=== PATIENT | male | born 1950 | race Caucasian/White ===

== ENCOUNTER → 2019-11-23 | Outpatient (CLI) | payer OTHER | LOC: M.RAD 15:13 | DX: J43.8 Other emphysema (principal); G63 Polyneuropathy in diseases classified elsewhere; E55.9 Vitamin D deficiency, unspecified; F41.1 Generalized anxiety disorder; R82.90 Unspecified abnormal findings in urine; J98.4 Other disorders of lung ==

== ENCOUNTER → 2020-04-07 | Outpatient (CLI) | payer OTHER | LOC: M.ULTRA 07:35 | PROVIDERS: ATTEND Internal Medicine | DX: N13.2 Hydronephrosis with renal and ureteral calculous obstruction (principal); R19.09 Other intra-abdominal and pelvic swelling, mass and lump ==

== ENCOUNTER 2020-06-09 20:47 | Inpatient (IN) | payer OTHER ==
[~2020-06-09] VITALS: Ht 193 cm; Wt 57.3 kg
[2020-06-09 20:50] VITALS: BP 120/66
--- NOTE | 2020-06-09 21:03 | NUR ---
DR SELLERS NOTIFIED RE: STEMI ACTIVATION
--- NOTE | 2020-06-09 21:08 | NUR ---
STEMI ACTIVATION CANCELLED PER DR SELLERS
[2020-06-09] MEDS ORDERED: NAPROXEN (21:21)
[2020-06-09] MEDS ORDERED: ADVAIR (21:21)
[2020-06-09 21:23] LABS: ABSOLUTE LYMPHOCYTES 0.7 thou/uL (0.8-5.3); ABSOLUTE MONOCYTES 0.6 thou/uL (0.0-1.2); ABSOLUTE NEUTROPHILS 16.8 thou/uL (1.6-8.1); BASOPHILS 0.1 %; EOSINOPHILS 0.1 %; HEMATOCRIT 40.9 % (42.0-52.0); HEMOGLOBIN 13.2 gm/dL (14.0-18.0); LYMPHOCYTES 3.6 %; MCH 28.9 pg (26.0-34.0); MCHC 32.2 g/dL (28.0-37.0); MCV 89.8 fL (80.0-100.0); MONOCYTES 3.4 %; MPV 7.4 fl. (7.2-11.1); NUCLEATED RBCS 0 /100WBC; PLATELET COUNT* 416 thou/uL (150-400); POLYS 92.8 %; RBC 4.56 mil/uL (4.50-6.00); RDW-CV 15.7 % (10.5-14.5)
[2020-06-09 21:53] LABS: BE -2.2 mmol/L (-2 to +3); PO2 87.1 mmHg (75.0-100.0)
[2020-06-09 21:57] LABS: PCO2 78.4 mmHg (35.0-45.0); pH 7.173 (7.340-7.450)
[2020-06-09 23:10] LABS: HEMATOCRIT 40.8 % (42.0-52.0); HEMOGLOBIN 13.1 gm/dL (14.0-18.0); MCH 28.8 pg (26.0-34.0); MCV 89.9 fL (80.0-100.0); NUCLEATED RBCS 0 /100WBC; PLATELET COUNT* 449 thou/uL (150-400); RBC 4.54 mil/uL (4.50-6.00); RDW-CV 15.7 % (10.5-14.5); WBC 20.7 thou/uL (4.0-11.0)
[2020-06-09 23:33] LABS: CALCIUM 9.6 mg/dL (8.5-10.1); CREATININE 2.1 mg/dL (0.6-1.3)
[2020-06-09 23:34] LABS: INR 1.1; PROTIME 11.4 Seconds (9.20-11.50)
[2020-06-09 23:37] LABS: ALBUMIN 2.9 g/dL (3.4-5.0); MAGNESIUM 2.7 mg/dL (1.8-2.4); TOTAL BILIRUBIN 0.4 mg/dL (<0.1-1.0); TOTAL PROTEIN 8.8 g/dL (6.4-8.2)
[2020-06-10] VITALS (7 sets, daily range): BP systolic 110–125; BP diastolic 66–75
[2020-06-10 00:56] LABS: BE -2.7 mmol/L (-2 to +3); PO2 112.9 mmHg (75.0-100.0)
[2020-06-10 01:01] LABS: PCO2 66.4 mmHg (35.0-45.0); pH 7.219 (7.340-7.450)
[2020-06-10 01:06] LABS: ABSOLUTE BASOPHILS 0.4 thou/uL (0.0-0.2); ABSOLUTE LYMPHOCYTES 1.4 thou/uL (0.8-5.3); ABSOLUTE MONOCYTES 0.2 thou/uL (0.0-1.2); ABSOLUTE NEUTROPHILS 18.6 thou/uL (1.6-8.1); PLATELET ESTIMATE INCREASED
[2020-06-10 06:18] LABS: BE -4.3 mmol/L (-2 to +3); PO2 123.3 mmHg (75.0-100.0)
[2020-06-10 06:24] LABS: PCO2 61.8 mmHg (35.0-45.0); pH 7.215 (7.340-7.450)
--- NOTE | 2020-06-10 09:00 | NUR ---
PT ADMITTED TO ROOM 213 FROM ED WITH RF,AMS AND COPD EXAC.PT IS AOX2.VSS ON BIPAP. POSITIVE ON SEPSIS SCREEN. ASSESSMENT CHARTED. EDUCATED TO ROOM,PLAN OF CARE AND TREATMENTS. NOTHING FURTHER AT THIS TIME.CLWR.WCTM
[2020-06-10 13:44] LABS: BE -4.2 mmol/L (-2 to +3); PCO2 39.2 mmHg (35.0-45.0); pH 7.348 (7.340-7.450)
[2020-06-10 19:11] LABS: ABSOLUTE LYMPHOCYTES 0.2 thou/uL (0.8-5.3); ABSOLUTE MONOCYTES 0.3 thou/uL (0.0-1.2); ABSOLUTE NEUTROPHILS 24.6 thou/uL (1.6-8.1); BASOPHILS 0.1 %; HEMATOCRIT 37.7 % (42.0-52.0); HEMOGLOBIN 11.9 gm/dL (14.0-18.0); LYMPHOCYTES 0.7 %; MCH 28.7 pg (26.0-34.0); MCHC 31.7 g/dL (28.0-37.0); MCV 90.5 fL (80.0-100.0); MONOCYTES 1.1 %; NUCLEATED RBCS 0 /100WBC; POLYS 98.1 %; RBC 4.16 mil/uL (4.50-6.00); RDW-CV 15.6 % (10.5-14.5); WBC 25.1 thou/uL (4.0-11.0)
[2020-06-10 19:12] LABS: PLATELET COUNT* 353 thou/uL (150-400)
[2020-06-10 19:31] LABS: ALBUMIN 2.5 g/dL (3.4-5.0); CALCIUM 8.4 mg/dL (8.5-10.1); CREATININE 1.8 mg/dL (0.6-1.3); MAGNESIUM 2.3 mg/dL (1.8-2.4); PHOSPHORUS* 4.1 mg/dL (2.5-4.9); TOTAL BILIRUBIN 0.4 mg/dL (<0.1-1.0); TOTAL PROTEIN 7.6 g/dL (6.4-8.2)
[2020-06-11] VITALS (7 sets, daily range): BP systolic 100–122; BP diastolic 53–80
[2020-06-11 03:56] LABS: ABSOLUTE BASOPHILS 0.1 thou/uL (0.0-0.2); ABSOLUTE LYMPHOCYTES 0.3 thou/uL (0.8-5.3); ABSOLUTE MONOCYTES 0.2 thou/uL (0.0-1.2); ABSOLUTE NEUTROPHILS 21.2 thou/uL (1.6-8.1); BASOPHILS 0.4 %; LYMPHOCYTES 1.2 %; MCH 28.8 pg (26.0-34.0); MCHC 32.2 g/dL (28.0-37.0); MCV 89.6 fL (80.0-100.0); MONOCYTES 0.9 %; MPV 6.8 fl. (7.2-11.1); NUCLEATED RBCS 0 /100WBC; PLATELET COUNT* 332 thou/uL (150-400); POLYS 97.5 %; RDW-CV 15.4 % (10.5-14.5); WBC 21.7 thou/uL (4.0-11.0)
[2020-06-11 04:28] LABS: ALBUMIN 2.4 g/dL (3.4-5.0); CALCIUM 8.3 mg/dL (8.5-10.1); MAGNESIUM 2.3 mg/dL (1.8-2.4); POTASSIUM 4.7 mmol/L (3.5-5.1); TOTAL BILIRUBIN 0.4 mg/dL (<0.1-1.0); TOTAL PROTEIN 7.4 g/dL (6.4-8.2)
[2020-06-11 07:45] LABS: BE 0.4 mmol/L (-2 to +3); PCO2 45.7 mmHg (35.0-45.0); PO2 83.5 mmHg (75.0-100.0); pH 7.372 (7.340-7.450)
--- NOTE | 2020-06-11 10:33 | NUR ---
PT IS ABLE TO COMMUNICATE HIS NEEDS TO STAFF EFFECTIVELY. HE HAS DENIED THE NEED FOR PAIN MEDICATION UP TO 0700 THIS MORNING. DIAZ PLACED ON PYROTECHNIST; TOLERATED WELL BY PT BUT INSERTION WAS PROBLEMATIC; URETHRAL OPENING TOO NARROW FOR ANY BT A STRAIGHT 12F CATHETER. INSERTION NON-TRAUMATIC, BUT BLOOD SEEN IN TUBE ABOUT 3HRS POST PLACEMENT; PT HAS HX OF PULLING AT [employer] AND MAY HAVE DONE SO WITH HIS CATHETER WELL. ENHANCED ISOLATION MAINTAINED FOR PENDING COVID-19 PCR TEST.
[2020-06-11 10:43] LABS: CALCIUM 8.3 mg/dL (8.5-10.1); CREATININE 1.9 mg/dL (0.6-1.3); POTASSIUM 4.9 mmol/L (3.5-5.1)
[2020-06-11 10:46] LABS: MAGNESIUM 2.4 mg/dL (1.8-2.4); PHOSPHORUS* 3.8 mg/dL (2.5-4.9)
[2020-06-11 12:59] LABS: URINE BILIRUBIN NEGATIVE (Negative); URINE BLOOD 3+ (Negative); URINE COLOR YELLOW; URINE GLUCOSE-RANDOM NEGATIVE (Negative); URINE KETONES NEGATIVE (Negative); URINE LEUKOCYTES-REFLEX 1+ (Negative); URINE NITRITE-REFLEX NEGATIVE (Negative); URINE PROTEIN 3+ (Negative); URINE SPECIFIC GRAVITY 1.025 (1.005-1.030); URINE UROBILINOGEN 0.2 E.U./dl (0.2-1.0)
[2020-06-11 13:04] LABS: URINE CLARITY HAZY
[2020-06-11 13:07] LABS: BACTERIA-REFLEX 1-9 Few /HPF (None Seen); CASTS None Seen /LPF (None Seen); CRYSTALS None Seen /LPF (None Seen); SQUAMOUS 0-3 Few /LPF (0-3); URINE RBC >20 Many /HPF (0-2); URINE WBC-REFLEX 6-15 Few /HPF (0-5)
--- NOTE | 2020-06-11 14:03 | EKG ---
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1950 Requested By: Sybil Rosas Order Number: [id number] MD: Hussein Bautista Measurements Intervals [employer] Rate: 92 P: 83 KS: 167 QRS: 91 QRSD: 100 T: 59 QT: 365 QTc: 452 Interpretive Statements Sinus rhythm Left atrial enlargement Right axis deviation Consider anterior infarct No previous ECG available for comparison Electronically Signed On 06-11-2020 14:02:55 COAT JOINER LOCKSTITCH by Hussein Bautista [email or web address] <ELECTRONICALLY SIGNED> By: Hussein Bautista MD, FACC 06/11/20 1402 54 54 Hussein Bautista MD, [facility] /EPI
--- NOTE | 2020-06-11 16:34 | NUR ---
PT O2 SAT 97% 4LNC. PT TO WEAR BIPAP PEN AND HS. IVF INFUSING. DIAZ TO DD WITH BLOODY URINE. DR AWARE. ADVANCED TO CONSISTANT CARB DIET. REMAINS ON ENHANCED PRECAUTIONS.
[2020-06-12] VITALS: BP 95/67
[2020-06-12 04:00] VITALS: BP 96/57
[2020-06-12 04:37] LABS: ABSOLUTE LYMPHOCYTES 0.3 thou/uL (0.8-5.3); MCH 28.8 pg (26.0-34.0)
[2020-06-12 04:40] LABS: ABSOLUTE MONOCYTES 0.3 thou/uL (0.0-1.2); ABSOLUTE NEUTROPHILS 19.3 thou/uL (1.6-8.1); BASOPHILS 0.1 %; LYMPHOCYTES 1.5 %; MCHC 32.2 g/dL (28.0-37.0); MCV 89.6 fL (80.0-100.0); MONOCYTES 1.7 %; MPV 7.2 fl. (7.2-11.1); NUCLEATED RBCS 0 /100WBC; PLATELET COUNT* 270 thou/uL (150-400); POLYS 96.7 %; RBC 3.13 mil/uL (4.50-6.00); RDW-CV 15.5 % (10.5-14.5); WBC 19.9 thou/uL (4.0-11.0)
[2020-06-12 05:10] LABS: CREATININE 1.9 mg/dL (0.6-1.3); POTASSIUM 4.4 mmol/L (3.5-5.1); TOTAL BILIRUBIN 0.3 mg/dL (<0.1-1.0); TOTAL PROTEIN 6.3 g/dL (6.4-8.2)
--- NOTE | 2020-06-12 07:10 | NUR ---
ASSUMED PT CARE AT 1930. NURSING ASSESSMENT COMPLETED AT START OF SHIFT. HOURLY ROUNDING COMPLETED. Q2H REPOSITIONING COMPLETED. HIGH FALL PRECAUTIONS IN PLACE. CALL LIGHT WITHIN REACH. PT TOLERATED BIPAP OVERNIGHT. PLACED ON 3L O2 NC THIS AM AT 0700.
[2020-06-12 08:00] VITALS: BP 100/55
--- NOTE | 2020-06-12 08:00 | NUR ---
ASSUMED CARE OF PATIENT THIS MORNING FROM NIGHT NURSE. PT IS DOING WELL WITH NO CO OF PAIN OR NAUSEA. HE WAS EDUCATED ON POC, FALL SAFETY AND USING THE CALL LIGHT FOR ASSISTANCE. BED IN LOWEST POSITION AND CALL LIGHT IS IN REACH. WILL CONTINUE TO MONITOR.
--- NOTE | 2020-06-12 11:29 | NUR ---
CM SPOKE TO THE PT TO COMPLETE CM ASSESSMENT. PT A&O, INDEPENDENT WITH ADL'S, ACTIVE, AND DRIVES SHORT DISTANCES. PT RESIDES AT HOME AND A FRIEND LIVES IN HIS BASEMENT. PT USES O DME. PT HAS 0 HX OF HH OR SNF. PT CURRENTLY ON 4L O2, BUT DOES NOT HAVE HOME OXYGEN. CM WILL REMAIN AVAILABLE TO ASSIST AND FOLLOW NEEDED.
[2020-06-12 12:00] VITALS: BP 99/66
[2020-06-12 16:00] VITALS: BP 106/70
--- NOTE | 2020-06-12 16:28 | EKG ---
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1950 Requested By: Sybil Rosas Order Number: [id number] Lianne MD: Tae Luke Measurements Intervals [place] Rate: 88 P: 88 SD: 162 QRS: 95 QRSD: 108 T: 44 QT: 376 QTc: 455 Interpretive Statements Sinus rhythm Probable anterior infarct, age indeterminate Compared to ECG 06/09/2020 20:55:30 Atrial abnormality no longer present Myocardial infarct finding still present Electronically Signed On 06-12-2020 16:28:49 BED MANAGER by Tae Luke [email or web address] <ELECTRONICALLY SIGNED> By: Tae Luke MD, FAC 06/12/20 1628 09 09 Tae Luke MD, [facility] /EPI
[2020-06-12 20:00] VITALS: BP 110/61
[2020-06-13] VITALS (7 sets, daily range): BP systolic 108–121; BP diastolic 59–68
[2020-06-13 04:38] LABS: ABSOLUTE LYMPHOCYTES 0.3 thou/uL (0.8-5.3); ABSOLUTE MONOCYTES 0.5 thou/uL (0.0-1.2); ABSOLUTE NEUTROPHILS 13.2 thou/uL (1.6-8.1); CALCIUM 8.1 mg/dL (8.5-10.1); CREATININE 1.5 mg/dL (0.6-1.3); HEMATOCRIT 29.9 % (42.0-52.0); HEMOGLOBIN 9.5 gm/dL (14.0-18.0); LYMPHOCYTES 2.1 %; MAGNESIUM 1.9 mg/dL (1.8-2.4); MCH 28.5 pg (26.0-34.0); MCHC 31.6 g/dL (28.0-37.0); MCV 90.1 fL (80.0-100.0); MONOCYTES 3.4 %; MPV 7.4 fl. (7.2-11.1); NUCLEATED RBCS 0 /100WBC; PLATELET COUNT* 270 thou/uL (150-400); POLYS 94.5 %; POTASSIUM 4.2 mmol/L (3.5-5.1); RBC 3.32 mil/uL (4.50-6.00); RDW-CV 15.6 % (10.5-14.5)
--- NOTE | 2020-06-13 11:28 | NUR ---
CM INFORMED DURING PRIME ROUNDING OF THE PLAN OF CARE FOR THE PT INCLUDING PENDING CONSULTS WITH PULM, NEPHROLOGY, AND ONCOLOGY. CM WILL REMAIN AVAILABLE TO ASSIST WITH D/C PLANNING NEEDED.
--- NOTE | 2020-06-13 13:36 | NUR ---
CM INFORMED OF THE NEED TO INITIATE TRANSFER FOR THE PT. REASON: UROLOGY/SERVICES NOT AVAILABLE AT OUR FACILITY, SENDING PHYSICIAN: DR. SR, BED: TELE. CM ATTEMPTED TO INTITIATE TRANSFER FOR THE PT WITH ALL LOCAL FACILITES WITHOUT SUCCESS INCLUDING: [facility]: 'NO UROLOGY'. [facility] TX TEAM: 'ALL [facility]S ON DIVERSION AT THIS TIME'. [facility]: 'AT CAPACITY'. [facility] TEAM: 'ALL [facility]S EITHER ON DIVERSION OR A CAPACITY'. [facility]: 'AT HIGH CAPACITY. LIKELIHOOD OF ACCEPTANCE LOW, AND WILL NOT HAVE A BED AVAILABLE TODAY'. [facility]: 'AT CAPACITY AT THIS TIME'. CM INFORMED THE PHYSICIAN AND RN IN-CHARGE OF THE PT OF ALL OF THE ABOVE INFO. RN INFORMS THAT THE ISSUE HAS RESOLVED AT THIS TIME, AND PT'S DIAZ IS NOW DRAINING. CM WILL REMAIN AVAILABLE TO ASSIST AND FOLLOW NEEDED.
--- NOTE | 2020-06-13 19:00 | NUR ---
PT. VSS, AOX4, BLADDER SCAN REVEALED 1400, DIAZ FLUSHED, UOP TOTAL 2225, ABD. NO LONGER DISTENDED. DENIES PAIN. CALL LIGHT AND PERSONAL BELONGINGS PLACED WITHIN REACH. PT. IN BED, WATCHING TV, IN NO APPARENT DISTRESS, AT SHIFT CHANGE.
[2020-06-14 04:04] VITALS: BP 106/60
[2020-06-14 04:49] LABS: HEMATOCRIT 32.3 % (42.0-52.0); HEMOGLOBIN 10.5 gm/dL (14.0-18.0); MCHC 32.5 g/dL (28.0-37.0); MCV 89.3 fL (80.0-100.0); MPV 7.7 fl. (7.2-11.1); NUCLEATED RBCS 0 /100WBC; PLATELET COUNT* 289 thou/uL (150-400); RBC 3.62 mil/uL (4.50-6.00); RDW-CV 15.7 % (10.5-14.5); WBC 10.1 thou/uL (4.0-11.0)
[2020-06-14 05:12] LABS: CALCIUM 8.6 mg/dL (8.5-10.1); CREATININE 1.5 mg/dL (0.6-1.3); MAGNESIUM 1.9 mg/dL (1.8-2.4); POTASSIUM 4.8 mmol/L (3.5-5.1)
[2020-06-14 08:00] VITALS: BP 115/57
[2020-06-14 08:01] LABS: ABSOLUTE LYMPHOCYTES 0.3 thou/uL (0.8-5.3); ABSOLUTE NEUTROPHILS 9.8 thou/uL (1.6-8.1); PLATELET ESTIMATE ADEQUATE
--- NOTE | 2020-06-14 09:16 | NUR ---
PT IS ABLE TO COMMUNICATE HIS NEEDS TO STAFF EFFECTIVELY. HE HAS DENIED THE NEED FOR PAIN MEDICATION UP TO 0700 THIS MORNING. EMILY HAS BEEN PATENT UP TO 0700 THIS MORNING; FLUSHED X1 OVERNIGHT. PT UP TO BS COMODE; LOOKING STRONGER.
[2020-06-14 12:18] VITALS: BP 91/48
[2020-06-14 16:09] VITALS: BP 104/55
--- NOTE | 2020-06-14 16:26 | NUR ---
CM INFORMED DURING PRIME ROUNDING OF THE PLAN OF CARE FOR THE PT INCLUDING PENDIING CONSULTS WITH CARDIOLOGY, PULM, AND ONCOLOGY. PT HAVING INCREASED NEED FOR O2 TODAY 5L-6L. PT DOES NOT HAVE HOME OXYGEN. CM WILL REMAIN AVAILABLE TO ASSIST AND FOLLOW NEEDED.
--- NOTE | 2020-06-14 19:00 | NUR ---
PT. AOX4, VSS, PAIN WITHIN CONTROL, ENCOURAGED PT. TO TURN AND OOB TO CHAIR, DECLINES. CALL LIGHT AND PERSONAL BELONGINGS PLACED WITHIN REACH. EMILY MOBLEY PATENT AND VIODING, CONTINUES ON 5L NC OXYGEN, IN LOWE 90%S. PT. IN BED, WATCHING TV, IN NO APPARENT DISTRESS, AT SHIFT CHANGE.
[2020-06-14 20:45] VITALS: BP 98/52
[2020-06-15] VITALS: BP 116/60
[2020-06-15 04:00] VITALS: BP 93/45
[2020-06-15 04:36] LABS: ABSOLUTE LYMPHOCYTES 0.2 thou/uL (0.8-5.3); ABSOLUTE MONOCYTES 0.4 thou/uL (0.0-1.2); ABSOLUTE NEUTROPHILS 8.6 thou/uL (1.6-8.1); BASOPHILS 0.1 %; HEMATOCRIT 29.7 % (42.0-52.0); HEMOGLOBIN 9.7 gm/dL (14.0-18.0); LYMPHOCYTES 2.6 %; MCH 29.3 pg (26.0-34.0); MCHC 32.8 g/dL (28.0-37.0); MCV 89.3 fL (80.0-100.0); MONOCYTES 4.4 %; MPV 7.7 fl. (7.2-11.1); NUCLEATED RBCS 0 /100WBC; PLATELET COUNT* 258 thou/uL (150-400); POLYS 92.9 %; RBC 3.33 mil/uL (4.50-6.00); RDW-CV 15.7 % (10.5-14.5); WBC 9.2 thou/uL (4.0-11.0)
[2020-06-15 05:08] LABS: CALCIUM 7.7 mg/dL (8.5-10.1); CREATININE 1.3 mg/dL (0.6-1.3); MAGNESIUM 1.8 mg/dL (1.8-2.4); POTASSIUM 4.7 mmol/L (3.5-5.1)
--- NOTE | 2020-06-15 05:20 | NUR ---
PT SLEPT OFF AND ON OVERNIGHT. O2 6L NC WHILE AWAKE, WEARING BIPAP OVERNIGHT FOR SLEEP, CONTINUOUS PULSE OX SATS 90-92%. TELE SR. DIAZ DRAINING YELLOW URINE. RFA SLIV. AM LABS, CXR. ABLE TO USE CALL LITE AND MAKE NEEDS KNOWN.
[2020-06-15 08:00] VITALS: BP 115/57
--- NOTE | 2020-06-15 08:44 | CON ---
[address] [address] CONSULTATION Name: BERNIECHUY Ray Room: [address] IN M.R.#: [id number] Admission: 06/09/20 Attend Phys: Jaden Westbrook Discharge: Date of : 48 Report #: [id number] THIS REPORT FOR: //name// cc: Audi Pedroza Meng, Zhao ~ DATE OF SERVICE: 06/10/2020 CONSULT REQUESTED BY: Edmar Burrows DO. INDICATION FOR CONSULTATION: Acute hypercarbic respiratory failure. HISTORY OF PRESENT ILLNESS: This is a 70-year-old gentleman. He does not state that he has a history of COPD; however, he has been using Advair at home in the past and he is an active smoker, so it does appear that he has a history of COPD. He does not report using oxygen, CPAP or BiPAP at home. He is now admitted with acute respiratory distress, has been having a cough and has had some sputum production as well. He also is reported to have had a syncopal episode. The patient is not known to have any kidney disease. On initial arrival, he is reported to be cyanotic, cold and clammy with no peripheral pulses palpable in the lower extremities. The patient also was noted to have a creatinine of 2.1. Note that this is in the setting of no known renal failure in the past. He has been on a BiPAP. Currently, he is stable on a BiPAP with 30% FiO2 14/6. He has at times been confused and he pulled out his IV and therefore, we currently do not have IV access. His blood pressure is towards the lower end of normal range. He is afebrile at this time. The patient is on a BiPAP. He is unable to provide a further history or review of systems. PAST MEDICAL HISTORY: It does appear to me that he has a history of COPD. 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 There is no known history of cardiac or renal disease in the past. SOCIAL HISTORY: He has an extensive history of smoking, currently smokes half a pack a day, has smoked more in the past, has been smoking for at least 50 years. No known history of heavy alcohol use or illegal drug use. CURRENT MEDICATIONS: List in [facility] reviewed. HOME MEDICATIONS: List also in [facility] reviewed. FAMILY HISTORY: Diabetes and heart disease. ALLERGIES: No known drug allergies. PHYSICAL EXAMINATION: GENERAL: He is on a BiPAP. He is alert. He appeared somewhat anxious. VITAL SIGNS: He has a pulse of 79 and a blood pressure of 113/67[place] [address] CONSULTATION Name: BERNIECHUY Flor Room: [address] IN [facility]#: [id number] Admission: 06/09/20 Attend Phys: Jaden Westbrook Discharge: Date of : 48 Report #: [id number] saturating 95%, respiratory rate is 18-20. He is afebrile with a temperature of 36.6. He is on a BiPAP of 14/6, 30% FiO2. HEENT: Head is normocephalic and atraumatic. Pupils are equal and reactive. There is no throat erythema. Throat examination, however, is limited due to the presence of BiPAP. NECK: Does not show raised JVP, asymmetry, mass or lymph nodes. CHEST: Symmetrical expansion on inspection and palpation. On auscultation, breath sounds are markedly decreased, but equal. I do not hear any added sounds. There is some pectus excavatum noted. HEART: Regular. There is no murmur. ABDOMEN: Soft. There is a protruding bulge noted in the lower abdomen, it is not known to me as to whether this is a new or old finding. The patient is tender in this bulge, which is below his umbilicus. EXTREMITIES: Lower extremities show no edema and no calf tenderness. There are some varicose veins noted. SKIN: Dry and intact. NEUROLOGICAL: He did move all extremities bilaterally equally and spontaneously with no focal deficit identified. LABORATORY DATA: The patient's chest x-ray from last night is reviewed and he does have bilateral patchy scattered infiltrates. I do not see any pulmonary vascular congestion. There is hyperinflation consistent with COPD. Lab work from yesterday also in [facility] reviewed. Arterial blood gases from yesterday in [facility] reviewed. I repeated an arterial blood gas now and it is in [facility] reviewed. ASSESSMENT/PLAN: 1. Acute hypercarbic respiratory failure. We will obtain stat labs. We will also obtain a stat chest x-ray. We will obtain IV access again, recommend obtaining at least 2 peripheral IVs, in case, adequate IV access was not obtained, he may need to get a central line, once these are reviewed and he stabilizes, we certainly can try him off BiPAP while awake. He for now does need to be on BiPAP while asleep as well as p.r.n. 2. Chronic obstructive pulmonary disease exacerbation. Solu-Medrol and nebulized bronchodilators. 3. Pulmonary infiltrates. We will initially cover him broadly. We will send off more cultures and serologies. COVID-19 antigen is negative; however, COVID-19 is not still fully ruled out at this time, recommend obtaining a PCR, unless the PCR is positive, however, I do not want to send him to the COVID unit as if he does not have COVID, then I do not want to get him exposed; therefore, I will recommend that he be transferred to a negative pressure room at the earliest as he does need a BiPAP as well as nebulizers. 4. Acute renal failure/possible sepsis. I favor continuing IV fluids. If his respiratory status worsens, I will be inclined to still continue IV fluids, but endotracheally intubate him. He is currently ordered normal saline at 100, once IV access is reestablished, we will start this, review [place] [address] CONSULTATION Name: CHUY GIBBS Room: [address] IN [facility].#: [id number] Admission: 06/09/20 Attend Phys: Jaden Westbrook Discharge: Date of : 48 Report #: [id number] accordingly. 5. Abdominal pain. Lower abdominal exam is as above. I agree with plans per the primary service to obtain a CT abdomen and pelvis without contrast, until the patient is stable for transfer to CT without a BiPAP, I will start by obtaining a flat plate of the abdomen, when he does go for a CT of the abdomen and pelvis, I intend to obtain a CT chest without contrast as well. 6. Deep venous thrombosis prophylaxis, Lovenox. 7. Gastrointestinal prophylaxis, Protonix. The patient is critically ill at this time. Total time spent providing critical care to this patient today exceeds 40 minutes. <ELECTRONICALLY SIGNED> By: Luis Zambrano MD 06/15/20 0844 1359 [id number] Zambrano MD /nt
[2020-06-15 11:56] VITALS: BP 105/50
--- NOTE | 2020-06-15 15:04 | NUR ---
CM INFORMED DURING PRIME ROUNDING OF THE PLAN OF CARE FOR THE PT INCLUDING NEED TO ARRANGE TRILOGY AND HOME OXYGEN PER PLUM RECOMMENDATIONS. CM INFORMED [facility] OF THE REFERRAL FOR DME AND FAXED PT'S CLINICAL INFO. CM INFORMED THE RN IN-CHARGE OF THE PT OF THE NEED TO ASK PULM TO COMPLETE THE TRILOGY ORDER. ORDER PLACED ON CHART. PT HAVING INCREASED NEED FOR OXYGEN TODAY AT 6L. CM WILL REMAIN AVAILABLE TO ASSIST AND FOLLOW NEEDED.
[2020-06-15 16:49] VITALS: BP 104/55
--- NOTE | 2020-06-15 19:39 | NUR ---
PT. AOX4, VSS, SHORTNESS OF BREATH WITH EXERTION, DENIES PAIN, ENCOURAGED PT TO OOB TO CHAIR, REFUSES. EDUCATED PT ON SKIN BREAKDOWN AND POTENTIAL FOR, PT. VERBALIZED UNDERSTANDING. CALL LIGHT AND PERSONAL BELONGINGS PLACED WITHIN REACH. PT. IN BED, RESTING WITH EYES CLOSED, AT SHIFT CHANGE.
[2020-06-15 20:00] VITALS: BP 95/47
[2020-06-16] VITALS: BP 94/54
[2020-06-16 04:00] VITALS: BP 90/53
[2020-06-16 04:53] LABS: ABSOLUTE LYMPHOCYTES 0.4 thou/uL (0.8-5.3); ABSOLUTE MONOCYTES 0.4 thou/uL (0.0-1.2); ABSOLUTE NEUTROPHILS 9.8 thou/uL (1.6-8.1); BASOPHILS 0.1 %; EOSINOPHILS 0.1 %; HEMATOCRIT 31.1 % (42.0-52.0); HEMOGLOBIN 10.4 gm/dL (14.0-18.0); LYMPHOCYTES 3.9 %; MCH 29.6 pg (26.0-34.0); MCHC 33.4 g/dL (28.0-37.0); MCV 88.8 fL (80.0-100.0); MONOCYTES 3.5 %; MPV 7.8 fl. (7.2-11.1); NUCLEATED RBCS 0 /100WBC; PLATELET COUNT* 287 thou/uL (150-400); POLYS 92.4 %; RDW-CV 15.7 % (10.5-14.5); WBC 10.6 thou/uL (4.0-11.0)
[2020-06-16 04:57] LABS: CALCIUM 7.9 mg/dL (8.5-10.1); CREATININE 1.6 mg/dL (0.6-1.3); MAGNESIUM 1.8 mg/dL (1.8-2.4); POTASSIUM 4.9 mmol/L (3.5-5.1)
--- NOTE | 2020-06-16 07:07 | NUR ---
ASSUMED CARE OF PT AFTER REPORT AT 1930. PT A&0X4. VSS. PHYSICAL ASSESSMENT COMPLETED AND CHARTED. PT ON O2 AT 6L NC/BIPAP AT HS. PT TRACING SR ON TELE. PT WITH DIAZ TO DEPENDENT DRAIN. PT DENIES ANY PAIN. FALL PRECAUTIONS IN PLACE. CALL LIGHT WITHIN REACH.
[2020-06-16 08:20] VITALS: BP 100/55
[2020-06-16 12:00] VITALS: BP 97/53
--- NOTE | 2020-06-16 12:17 | NUR ---
CM INFORMED DURING PRIME ROUNDING OF PLAN OF CARE FOR THE PT INCLUDING PENDING PULM CONSULT. CM INFORMED P.T. OF NEED FOR F/U TO DETERMINE PT'S MOBILITY AND NEED FOR HH VS SNF. CM INFORMED RN IN-CHARGE OF PT OF NEED TO HAVE PULM SIGN TRILOGY ORDER. PT REMAINS ON 6L O2 VIA NC, BUT ALSO REQUIRES BIPAP AT NOC. PT DOES NOT HAVE HOME O2 OR ANY OTHER DME. IF PT IS READY TO D/C OVER THE WEEKEND [facility] WILL NEED TO BE NOTIFIED SO THAT THEY MAY DELIVER TILOGY FOR PT'S HOME USE. PT WILL ALSO NEED REST AND ACTIVITY SAT TESTING PRIOR TO D/C IF PT CONTINUES TO NEED HOME OXYGEN. SAT TESTING WILL NEED TO BE FAXED TO [facility] PRIOR TO D/C WELL CALLING JUAREZ WITH [facility] TO DELIVER OXYGEN TANKS. CM WILL REMAIN AVAILABLE TO ASSIST AND FOLLOW NEEDED. [facility]ARE[facility] WITH [facility] PHONE: [phone] FAX: [phone]
--- NOTE | 2020-06-16 13:16 | NUR ---
ASSUMED CARE OF PT AT 0730. PT LYING IN BED. A&0X4, DENIES ANY PAIN OR SHORTNESS OF BREATH AT THIS TIME. TRACING SR ON THE PARLOR CHAPERONE. ON 6L NC SAT 91%. CONTINUOUS PULSE OX IN PLACE. PT HAS SHORTNESS OF BREATH WITH EXERTION AND REST. DIAZ TO DEPENDENT DRAINAGE. PT UP WITH 1 ASSIST AND WALKER TO BATHROOM. WEAKNESS NOTED. PT GOAL FOR TODAY IS TITRATE OXYGEN, INCREASE ACTIVITY AND DISCHARGE PLANNING. AM ASSESSMENT CHARTED. MEDS PER OCT. PT REPOSITIONED EVERY 2 HOURS FOR COMFORT. HOURLY ROUNDING OBSERVED. BED IN LOW POSITION. BED ALARM IN PLACE. FALL PRECAUTIONS IN PLACE. CALL LIGHT WITHIN REACH. WILL CONTINUE PLAN OF CARE.
[2020-06-16 16:40] VITALS: BP 87/50
[2020-06-16 20:00] VITALS: BP 102/57
[2020-06-17] VITALS: BP 102/50
[2020-06-17 04:10] VITALS: BP 92/57
[2020-06-17 04:30] LABS: ABSOLUTE EOSINOPHILS 0.1 thou/uL (0.0-0.7); ABSOLUTE LYMPHOCYTES 1.3 thou/uL (0.8-5.3); ABSOLUTE MONOCYTES 0.8 thou/uL (0.0-1.2); ABSOLUTE NEUTROPHILS 8.7 thou/uL (1.6-8.1); BASOPHILS 0.1 %; EOSINOPHILS 0.7 %; HEMATOCRIT 29.6 % (42.0-52.0); HEMOGLOBIN 9.8 gm/dL (14.0-18.0); LYMPHOCYTES 12.1 %; MCH 29.7 pg (26.0-34.0); MCHC 33.2 g/dL (28.0-37.0); MCV 89.3 fL (80.0-100.0); MONOCYTES 7.3 %; MPV 7.6 fl. (7.2-11.1); NUCLEATED RBCS 0 /100WBC; PLATELET COUNT* 272 thou/uL (150-400); POLYS 79.8 %; RBC 3.31 mil/uL (4.50-6.00); RDW-CV 15.7 % (10.5-14.5); WBC 10.9 thou/uL (4.0-11.0)
[2020-06-17 05:03] LABS: ALBUMIN 2.1 g/dL (3.4-5.0); CALCIUM 7.9 mg/dL (8.5-10.1); CREATININE 1.4 mg/dL (0.6-1.3); MAGNESIUM 1.8 mg/dL (1.8-2.4); POTASSIUM 4.4 mmol/L (3.5-5.1); TOTAL BILIRUBIN 0.3 mg/dL (<0.1-1.0); TOTAL PROTEIN 5.4 g/dL (6.4-8.2)
[2020-06-17 07:30] VITALS: BP 93/50
--- NOTE | 2020-06-17 09:31 | NUR ---
ASSUMED CARE OF PT AT 0730. PT SITTING UP IN BED WAITING FOR BREAKFAST. PT ON 8L NC SAT 95%-PT TITRATED TO 6L NC SAT 92% PT GETS VERY SHORTNESS OF BREATH WITH ANY MOVEMENT OR EXERTION AND SATS DROP IN THE UPPER 70'S/80'S. TRACING SR ON THE HEADER DOCK. PT A&0X4, DENIES ANY PAIN. DIAZ TO DEPEDENT DRAINAGE. UP WITH 1 ASSIST AND WALKER TO BSC/CHAIR. PT GOAL FOR TODAY IS INCREASE ACTIVITY, OOB TID AND TITRATE OXYGEN FOR DISCHARGE PLANNING. AM ASSESSMENT CHARTED. MEDICATIONS PER OCT. PT REPOSITIONED EVERY 2 HOURS FOR COMFORT. HOURLY ROUNDING OBSERVED. BED IN LOW POSITION. CALL LIGHT WITHIN REACH. WILL CONTINUE PLAN OF CARE
[2020-06-17 12:00] VITALS: BP 96/50
[2020-06-17 16:00] VITALS: BP 101/54
[2020-06-17 20:00] VITALS: BP 96/49
--- NOTE | 2020-06-18 06:14 | NUR ---
PT EXPERIENCED DE SAT OF OXYGEN WHILE SLEEPING. PT REFUSED TO WEAR BIPAP, ADJUSTED OXYGEN TO KEEP PT ABOVE 90%. HE REQUIRES HIGHER OXYGEN NEEDS DURING THE NIGHT, EDUCATED THE PT THAT THE BIPAP WOULD BENEFIT HIM, PT STILL REFUSED.
[2020-06-18 07:30] VITALS: BP 94/52
--- NOTE | 2020-06-18 09:22 | NUR ---
ASSUMED CARE OF PT AT 0730. PT RESTING IN BED. ON 7L NC SAT 92%. PT TITRATED TO 6L NC SAT 90%. PT UP TO RECLINER FOR BREAKFAST WITH 1 ASSIST-SAT DROPPED IN LOW 80'S WITH EXERTION. PT COMPLAINS OF SHORTNESS OF BREATH WITH EXERTION AND AT REST. CONTINUOUS PULSE OX IN PLACE. TRACING SR ON THE SENIOR MECHANICAL PROJECT ENGINEER. A&0X4, DENIES ANY PAIN. DIAZ TO DEPENDENT DRAINAGE. PT GOAL FOR TODAY IS CONTINUE WITH IV STEROIDS, TITRATE OXYGEN, OOB FOR MEALS AND AMBULATE TID. AM ASSESSMENT CHARTED. MEDICATIONS PER OCT. PT REPOSITIONED EVERY 2 HOURS FOR COMFORT- SELF WITH REMINDERS. HOURLY ROUNDING OBSERVED. BED IN LOW POSITION. CALL LIGHT WITHIN REACH. WILL CONTINUE PLAN OF CARE.
[2020-06-18 12:00] VITALS: BP 93/59
--- NOTE | 2020-06-18 17:48 | NUR ---
NO ACUTE CHANGES THROUGHOUT SHIFT. REFER TO CHARTING. PT REFUSED TO WORK WITH PHYSICAL THERAPY TODAY-EDUCATION GIVEN. PT UP TO CHAIR FOR MEALS, VERY WEAK. CONTINUES TO BE ON 5-6 L NC SAT LOW 90'S. DENIES ANY PAIN THIS AFTERNOON. DIZA TO DEPENDENT DRAINAGE. PT INCONT OF BOWEL X 2 TODAY WHILE SITTING UP IN RECLINER. REDNESS NOTED TO BOTTOM-BARRIER CREAM APPLIED. PT RECEIVING IV SOLUMEDROL. PLAN IS TO DISCHARGE HOME WHEN 02 NEEDS ARE DECREASED. PT EDUCATED ON IMPORTANCE OF WEARING BIPAP AT NOC-REINFORCEMENT NEEDED. NOT PROGRESSING TOWARDS GOALS. MEDS PER OCT. PT REPOSITIONED EVERY 2 HOURS FOR COMFORT. HOURLY ROUNDING OBSERVED. BED IN LOW POSITION. CALL LIGHT WITHIN REACH. WILL CONTINUE PLAN OF CARE.
[2020-06-18 20:30] VITALS: BP 107/64
[2020-06-19 00:45] VITALS: BP 100/50
[2020-06-19 04:00] VITALS: BP 91/50
[2020-06-19 04:15] LABS: HEMATOCRIT 31.6 % (42.0-52.0); HEMOGLOBIN 10.2 gm/dL (14.0-18.0); MCH 29.1 pg (26.0-34.0); MCHC 32.2 g/dL (28.0-37.0); MCV 90.4 fL (80.0-100.0); MPV 7.6 fl. (7.2-11.1); RBC 3.5 mil/uL (4.50-6.00); RDW-CV 15.8 % (10.5-14.5); WBC 12.9 thou/uL (4.0-11.0)
[2020-06-19 04:52] LABS: ALBUMIN 2.3 g/dL (3.4-5.0); CALCIUM 7.5 mg/dL (8.5-10.1); CREATININE 1.2 mg/dL (0.6-1.3); POTASSIUM 4.3 mmol/L (3.5-5.1); TOTAL BILIRUBIN 0.5 mg/dL (<0.1-1.0); TOTAL PROTEIN 5.6 g/dL (6.4-8.2)
--- NOTE | 2020-06-19 06:13 | NUR ---
PT CARE ASSUMED AT 1930. ALERT AND ORIENTED X4. PT REFUSED BIPAP, EDUCATION GIVEN, NEEDS REINFORCEMENT. PT ON 6L NC OVERNIGHT. DENIES PAIN. CALL LIGHT WITHIN REACH AND BED IN LOW POSITION. HOURLY ROUNDING DONE FOR PT SAFETY.
[2020-06-19 09:34] VITALS: BP 94/48
[2020-06-19 11:45] VITALS: BP 87/47
--- NOTE | 2020-06-19 12:13 | NUR ---
CM INFORMED DURING PRIME ROUNDING OF THE PLAN OF CARE FOR THE PT. PT REMAINS ON 6L-7L O2 VIA NC. PHYSICIAN REQUEST TRILOGY BE DELIVERED TO THE HOSPITAL TO ASSESS PT'S COMFORT LEVEL WITH USING TRILOGY. CM INFORMED [facility] OF THE NEED TO HAVE TRILOGY DILIVERED TO PT'S HOSPITAL ROOM. JUAREZ WITH [facility] CONFIRMS ABILITY TO DO THIS AND INFORMS THAT [facility]'S 'RESPIRATORY THERAPIST WILL DELIVER TRILOGY TO HOSPITAL TODAY'. CM INFORMED INFORMATION DESK OF THE NEED TO ALLOW [facility] RESPIRATORY THERAPIST UP TO THE PT'S ROOM TO SETUP TRILOGY. CM INFORMED PHYSICIAN AND RN IN-CHARGE OF PT OF THIS INFO. CM WILL REMAIN AVAILABLE TO ASSIST AND FOLLOW NEEDED.
[2020-06-19 17:10] VITALS: BP 97/53
--- NOTE | 2020-06-19 19:01 | NUR ---
PT IS ALERT AND ORIENTED X4 FORGETFUL AT TIMES 4L NC 02 NOW BUTADIENE CONVERTER HELPER DESATS WHEN EATING AND MOVING AROUND AT TIMES 1 BAG OF LR RUNNING RIGHT NOW DENIES PAIN PT WANTS TO GO HOME TRIOLOGY BROUGHT HERE AND TEACHING DONE BY RT PT DENIED CT FOR TONIGHT SAID HE WOULD TRY IT TOMORROW AFTER WEARING TRIOLOGY T/O NIGHT [facility] FC CONTINUES WITH DARK YELLOW URINE UROLOGY OUTPATIENT CALL LIGHT IN REACH NO QUESTIONS OR CONCERNS JUST WANTS TO GO HOME
[2020-06-19 20:00] VITALS: BP 110/56
[2020-06-20] VITALS (8 sets, daily range): BP systolic 92–112; BP diastolic 42–90
--- NOTE | 2020-06-20 05:04 | NUR ---
PT CARE ASSUMED AT 1930. ALERT AND ORIENTED X4. ABLE TO WEAN PT'S O2 DEMANDS TO 4L NC. SLEPT ON TRILOGY THROUGHOUT THE NIGHT. DENIES PAIN. CALL LIGHT WITHIN REACH AND BED IN LOW POSITION. HOURLY ROUNDING DONE FOR PT SAFETY.
[2020-06-20] MEDS ORDERED: PREDNISONE 10 M10 MG PO (09:02)
[2020-06-20] MEDS ORDERED: PROAIR HFA8.5 GM INH (09:02)
[2020-06-20] MEDS ORDERED: OMEPRAZOLE40 MG PO (09:02)
--- NOTE | 2020-06-20 13:28 | NUR ---
MANUELA SPOKE TO THE PT TO DISCUSS DISCHARGE PLANNING AND HIS D/C HOME TODAY WITH HH AND HOME OXYGEN. PT IN AGREEMENT AND INFORMS THAT HE HAS NO PREFERANCE OF HH COMPANY. CM ARRANGED HH FOR THE PT WITH [facility] AND FAXED PT'S CLINICAL INFO AND D/C ORDERS. MANUELA ALSO INFORMED [facility] OF THE NEED TO PROVIDE PT WITH OXYGEN FOR HOME USE THEY SUPPLIED PT WITH TRILOGY FOR HOME USE. [facility] WILL DELIVER PT'S OXYGEN TANK TO THE HOSPITAL AND DELIVER PT'S HOME OXYGEN SUPPLIES TO HIS HOME AT D/C. CM WILL REMAIN AVAILABLE TO ASSIST AND FOLLOW NEEDED. [facility] PHONE: [phone] FAX: [phone] [facility] PHONE: [phone]
--- NOTE | 2020-06-20 16:13 | NUR ---
PT DISCHARGED TO HOME WITH HOME HEALTH AND OXYGEN KNOWNS TO FOLLOW UP WITH NEPHRO/ONCOLOGY/PULMONOLOGY NO QUESTIONS OR CONCERNS
== END 2020-06-20 16:16 | disposition home health service (06) | DRG 871 ==
LOC: M.ERS 20:47 → M.2W 22:33 → M.TBA-ER 22:33 → M.2W 06-10 08:15
PROVIDERS: Internal Medicine; Internal Medicine Critical Care Medicine; Personal Emergency Response Attendant; ADMIT Internal Medicine; ATTEND Internal Medicine
PROC: 5A09357 Assistance with Respiratory Ventilation, Less than 24 Consecutive Hours, Continuous Positive Airway Pressure (ICD-10-PCS; principal; 2020-06-10)
PROC: 5A09357 Assistance with Respiratory Ventilation, Less than 24 Consecutive Hours, Continuous Positive Airway Pressure (ICD-10-PCS; 2020-06-11)
PROC: 5A09357 Assistance with Respiratory Ventilation, Less than 24 Consecutive Hours, Continuous Positive Airway Pressure (ICD-10-PCS; 2020-06-12)
PROC: 5A09357 Assistance with Respiratory Ventilation, Less than 24 Consecutive Hours, Continuous Positive Airway Pressure (ICD-10-PCS; 2020-06-13)
PROC: 5A09357 Assistance with Respiratory Ventilation, Less than 24 Consecutive Hours, Continuous Positive Airway Pressure (ICD-10-PCS; 2020-06-14)
PROC: 5A09357 Assistance with Respiratory Ventilation, Less than 24 Consecutive Hours, Continuous Positive Airway Pressure (ICD-10-PCS; 2020-06-15)
PROC: 5A09357 Assistance with Respiratory Ventilation, Less than 24 Consecutive Hours, Continuous Positive Airway Pressure (ICD-10-PCS; 2020-06-19)
DX: A41.9 Sepsis, unspecified organism (principal); J69.0 Pneumonitis due to inhalation of food and vomit; G92 Toxic encephalopathy; N17.0 Acute kidney failure with tubular necrosis; E43 Unspecified severe protein-calorie malnutrition; J96.22 Acute and chronic respiratory failure with hypercapnia; J96.21 Acute and chronic respiratory failure with hypoxia; J44.1 Chronic obstructive pulmonary disease with (acute) exacerbation; Z68.1 Body mass index [BMI] 19.9 or less, adult; C34.90 Malignant neoplasm of unspecified part of unspecified bronchus or lung; N13.30 Unspecified hydronephrosis; R33.8 Other retention of urine; F17.210 Nicotine dependence, cigarettes, uncomplicated; N31.2 Flaccid neuropathic bladder, not elsewhere classified; Z20.828 Contact with and (suspected) exposure to other viral communicable diseases; R91.8 Other nonspecific abnormal finding of lung field; Z79.899 Other long term (current) drug therapy; Z23 Encounter for immunization

== ENCOUNTER 2020-06-26 18:10 | Emergency (ER) | payer OTHER ==
[~2020-06-26] VITALS: Ht 195.6 cm; Wt 56.7 kg
[~2020-06-26 18:10] MED LIST: ADVAIR; NAPROXEN; OMEPRAZOLE40 MG PO; PREDNISONE 10 M10 MG PO; PROAIR HFA8.5 GM INH
[2020-06-26 20:13] LABS: URINE BILIRUBIN NEGATIVE (Negative); URINE BLOOD NEGATIVE (Negative); URINE CLARITY CLEAR; URINE COLOR YELLOW; URINE GLUCOSE-RANDOM NEGATIVE (Negative); URINE KETONES NEGATIVE (Negative); URINE LEUKOCYTES-REFLEX NEGATIVE (Negative); URINE NITRITE-REFLEX NEGATIVE (Negative); URINE PROTEIN NEGATIVE (Negative); URINE UROBILINOGEN 0.2 E.U./dl (0.2-1.0)
[2020-06-26 20:20] VITALS: BP 115/67
== END 2020-06-26 20:52 | disposition home or self-care (01) ==
LOC: M.ERS 18:10
PROVIDERS: Physician Assistant
DX: T83.098A Other mechanical complication of other urinary catheter, initial encounter (principal); R33.9 Retention of urine, unspecified; J44.9 Chronic obstructive pulmonary disease, unspecified; Z79.899 Other long term (current) drug therapy; Y84.8 Other medical procedures as the cause of abnormal reaction of the patient, or of later complication, without mention of misadventure at the time of the procedure; Y92.89 Other specified places as the place of occurrence of the external cause